=== PATIENT | male | born 1975 | race Caucasian/White ===

== ENCOUNTER 2023-06-07 22:28 | Inpatient (IN) | payer OTHER ==
[2023-06-07 23:16] LABS: #Basophils 0.1 thou/uL (0.0-0.2); #Eosinphils 0.1 thou/uL (0.0-0.7); #Monocytes 1.4 thou/uL (0.11-0.59); %Basophils 0.4 % (0.0-1.0); %Eosinophils 0.9 % (0.0-10.0); %Lymphocytes 9.7 % (21.0-51.0); %Monocytes 9.4 % (0.0-10.0); %Neutrophils 79.1 % (42.0-75.0); Hemoglobin 17.3 g/dL (14.0-18.0); Mean Corpuscular HGB CONC 35.3 g/dL (32.0-36.0); Mean Corpuscular Hemoglobin 31.6 pg (27.0-31.0); Mean Corpuscular Volume 89.4 fl (78.0-98.0); Platelet Count 244 10x3/uL (130-400); RBC Distribution Width 11.9 % (11.5-14.5); Red Blood Cell (RBC) Count 5.48 mill/uL (4.70-6.10); White Blood Cell (WBC) Count 15.2 10x3/uL (4.8-10.8)
[2023-06-07] MEDS ORDERED: Morphine 4 MG/ML VIAL ONE (23:25)
[2023-06-07] MEDS ORDERED: Ondansetron PF 4 MG/2 ML Vial ONE (23:25)
[2023-06-07 23:50] LABS: CK (CPK) 93 U/L (30-200); Lipase 17 U/L (8-78)
[2023-06-08 00:08] LABS: Bacteria/HPF None Seen HPF (None Seen); Bilirubin Negative (Negative); Blood, Urine 1+ (Negative); CAUTI Indications for Culture Pelvic or flank pain; Clarity Clear (Clear); Glucose, Urine (Dipstick) Normal (Negative); Ketone, Urine Negative (Negative); Leukocyte Negative Leu/uL (Negative); Nitrite Negative (Negative); Protein, Urine (Dipstick) Negative (Neg-Trace); RBC/HPF 0-3 HPF (0-3); Specific Gravity, Urine 1.007 (1.002-1.036); Squamous Epithelial None Seen HPF (0-3); Urobilinogen 3 mg/dL (Less than 2); WBC/HPF 0-3 HPF (0-3); pH, Urine 6.5 (5.0-9.0)
[2023-06-08 00:14] LABS: Urine Culture Reflex No No
[2023-06-08 00:25] LABS: Albumin 4.1 g/dL (3.5-5.0)
[2023-06-08 00:26] LABS: Chloride 106 mmol/L (98-107); Potassium 4.5 mmol/L (3.5-5.1); Sodium 138 mmol/L (136-145)
[2023-06-08 00:27] LABS: Calcium 9.5 mg/dL (7.8-10.44); Glucose 119 mg/dL (70-105)
[2023-06-08 00:28] LABS: Globulin 3.1 g/dL (2.4-3.5); Protein, Total 7.2 g/dL (6.0-8.3)
[2023-06-08 00:29] LABS: Anion Gap 15 mmol/L (10-20); Bilirubin, Total 2.3 mg/dL (0.2-1.2); Carbon Dioxide 22 mmol/L (22-29)
[2023-06-08 00:30] LABS: Alkaline Phosphatase 79 U/L (40-110)
[2023-06-08 00:31] LABS: BUN (Urea Nitrogen) 12 mg/dL (8.9-20.6); Calc. Creatinine Clearance 0 mL/min (70-130); Estimated GFR 107
[2023-06-08 00:32] LABS: AST (SGOT) 15 U/L (5-34)
[2023-06-08 00:33] LABS: ALT (SGPT) 18 U/L (8-55)
[2023-06-08] MEDS ORDERED: Piperacillin/Tazobactam 4.5 GM VIAL ONE (01:56)
[2023-06-08] MEDS ORDERED: Morphine 4 MG/ML VIAL ONE (01:56)
[2023-06-08] MEDS ORDERED: Morphine 4 MG/ML VIAL SLOW IVP PRN ×2 (03:34→11:39)
[2023-06-08] MEDS ORDERED: Ondansetron PF 4 MG/2 ML Vial IVP PRN (03:38)
[2023-06-08] MEDS ORDERED: Ondansetron ODT 4 MG TAB SL PRN (03:45)
[2023-06-08] MEDS ORDERED: D5 1/2 NS w/20 mEq KCL 1,000 ML IV SCH (03:45)
[2023-06-08] MEDS ORDERED: Acetaminophen 325 MG TAB PO PRN (03:45)
[2023-06-08 04:52] VITALS: BMI 43.5
[2023-06-08] MEDS ORDERED: Dexmedetomidine 200 MCG/2 ML VIAL ONE (07:27)
[2023-06-08] MEDS ORDERED: fentaNYL PF 100 MCG/2 ML SYRINGE ONE (07:27)
[2023-06-08] MEDS ORDERED: Magnesium 5 GM/10 ML VIAL ONE (07:27)
[2023-06-08] MEDS ORDERED: Piperacillin/Tazobactam 4.5 GM in Sodium Chloride 0.9% 100 ML IVPB SCH (09:00)
[2023-06-08] MEDS ORDERED: Iopamidol 15 ML ONE (09:20)
[2023-06-08] MEDS ORDERED: Bupivacaine HCl 0.5%/Epinephrine 1:200,000/PF 30 ml Vial ONE (09:20)
[2023-06-08] MEDS ORDERED: PROPOFOL 200 MG/20 ML VIAL ONE (09:38)
[2023-06-08] MEDS ORDERED: Lidocaine 1% PF 5 ML VIAL ONE (09:38)
[2023-06-08] MEDS ORDERED: Rocuronium Bromide 10 MG/ML (10ML VIAL) ONE (09:38)
[2023-06-08] MEDS ORDERED: NEOSTIGMINE 3 MG/3 ML SYR 3 MG/3 ML SYRINGE ONE (09:38)
[2023-06-08] MEDS ORDERED: Dexamethasone 20 MG/5 ML VIAL ONE (09:38)
[2023-06-08] MEDS ORDERED: Glycopyrrolate 0.2 MG/ML 5 ML SYRINGE ONE (09:38)
[2023-06-08] MEDS ORDERED: Ondansetron PF 4 MG/2 ML Vial ONE (09:38)
[2023-06-08] MEDS ORDERED: PACU-Morphine 4MG/ML VIAL SLOW IVP PRN (11:20)
[2023-06-08] MEDS ORDERED: Meperidine HCl/PF 25 MG/ML VIAL SLOW IVP PRN (11:20)
[2023-06-08] MEDS ORDERED: Ondansetron HCl/PF 4 MG/2 ML Vial IVP PRN (11:20)
[2023-06-08] MEDS ORDERED: Promethazine HCl 25 MG/ML VIAL IM PRN (11:20)
[2023-06-08] MEDS ORDERED: fentaNYL 50 mcg/mL 1 mL Vial ONE (11:30)
[2023-06-08] MEDS ORDERED: hydrALAZINE 20 MG/ML VIAL SLOW IVP PRN (11:39)
[2023-06-08] MEDS ORDERED: Morphine 2 MG/ML VIAL SLOW IVP PRN (11:39)
[2023-06-08] MEDS ORDERED: HYDROcodone/Acetaminophen 5/325 mg Tablet PO PRN (11:39)
[2023-06-08] MEDS: Piperacillin/Tazobactam 3.375 GM in Sodium Chloride 0.9% 100 ML IVPB SCH ×2 (14:36→21:46)
[2023-06-08] MEDS: HYDROcodone/Acetaminophen 5/325 mg Tablet PO PRN ×2 (15:58→20:34)
[2023-06-08] MEDS: Famotidine/PF 20 mg/2ml Vial SLOW IVP SCH (20:32)
[2023-06-09] MEDS: Piperacillin/Tazobactam 3.375 GM in Sodium Chloride 0.9% 100 ML IVPB SCH ×2 (05:24→16:01)
[2023-06-09] MEDS: HYDROcodone/Acetaminophen 5/325 mg Tablet PO PRN ×2 (05:25→14:44)
[2023-06-09 06:19] LABS: #Monocytes 1.5 thou/uL (0.11-0.59); #Neutrophils 8.2 thou/uL (1.40-6.50); %Basophils 0.2 % (0.0-1.0); %Eosinophils 0.3 % (0.0-10.0); %Lymphocytes 15.1 % (21.0-51.0); %Monocytes 12.8 % (0.0-10.0); %Neutrophils 71.2 % (42.0-75.0); Hematocrit 42.7 % (42.0-52.0); Hemoglobin 14.6 g/dL (14.0-18.0); Mean Corpuscular HGB CONC 34.2 g/dL (32.0-36.0); Mean Corpuscular Hemoglobin 31.5 pg (27.0-31.0); Mean Corpuscular Volume 92.2 fl (78.0-98.0); Mean Platelet Volume 9.7 fL (7.4-10.4); Platelet Count 238 10x3/uL (130-400); RBC Distribution Width 11.9 % (11.5-14.5); Red Blood Cell (RBC) Count 4.63 mill/uL (4.70-6.10); White Blood Cell (WBC) Count 11.5 10x3/uL (4.8-10.8)
[2023-06-09 06:49] LABS: ALT (SGPT) 33 U/L (8-55); AST (SGOT) 23 U/L (5-34); Albumin 3.7 g/dL (3.5-5.0); Alkaline Phosphatase 70 U/L (40-110); Anion Gap 14 mmol/L (10-20); BUN (Urea Nitrogen) 13 mg/dL (8.9-20.6); Bilirubin, Total 1.5 mg/dL (0.2-1.2); Calc. Creatinine Clearance 182 mL/min (70-130); Calcium 8.8 mg/dL (7.8-10.44); Carbon Dioxide 22 mmol/L (22-29); Chloride 105 mmol/L (98-107); Estimated GFR 101; Globulin 2.9 g/dL (2.4-3.5); Glucose 122 mg/dL (70-105); Potassium 4.3 mmol/L (3.5-5.1); Protein, Total 6.6 g/dL (6.0-8.3); Sodium 137 mmol/L (136-145)
[2023-06-09] MEDS: Famotidine/PF 20 mg/2ml Vial SLOW IVP SCH (08:14)
[2023-06-09 12:27] VITALS: BP 149/78; TEMP 98.1
== END 2023-06-09 15:25 | disposition home or self-care (01) | DRG 418 ==
LOC: ERS 22:28 → SURG A 06-08 01:52
PROVIDERS: ADMIT Surgery; ATTEND Surgery
PROC: 0FB44ZZ Excision of Gallbladder, Percutaneous Endoscopic Approach (ICD-10-PCS; principal; 2023-06-08)
DX: K81.0 Acute cholecystitis (principal); Z68.41 Body mass index [BMI] 40.0-44.9, adult; E66.01 Morbid (severe) obesity due to excess calories; E78.5 Hyperlipidemia, unspecified; I10 Essential (primary) hypertension; Z79.82 Long term (current) use of aspirin; Z79.899 Other long term (current) drug therapy; Z82.49 Family history of ischemic heart disease and other diseases of the circulatory system
CPT/HCPCS: 36415; 71045; 76705; 80053; 81001; 82550; 83690; 83880; 84484; 85025; 85610; 85730; 88304; 93005; 94760; 96365; 96375; A4649; C1889; J1100; J1650; J2270; J2405; J2543; J2704; J3010; J3475; J3480; J3490; Q9967; S0028